=== PATIENT | male | born 1965 | race Two or more races ===

== ENCOUNTER → 2016-05-03 | Outpatient (CLI) | payer OTHER ==
[2015-07-13 18:41] VITALS: BP 139/87
[~2016-05-03] MED LIST: AMOX500C PO; ATOR10TA60 PO; CHOL10003 PO; DEXT10TA38 PO; DULO30CA2 PO; FENO134C PO; IBUP-1027 PO; LOSA25TA4 PO; OMEG500C PO; TAMS0.4C2 PO; TRAM50TA PO
--- NOTE | 2016-05-04 06:44 | PAIN ---
DATE OF SERVICE: 05/03/2016 INITIAL CONSULTATION FOR PAIN CLINIC CHIEF COMPLAINT: Low back pain and bilateral lower extremity pain, right greater than left. HISTORY OF PRESENT ILLNESS: This is a 50-year-old male who presents with a history of pain since 2012, gradually increasing, not a result of any specific injury or action that he is aware of, but has had significant pain across the low back, more on the right than the left, but present bilaterally for several years now. The patient reports it as constant, sharp, tingling with radiation to the lower extremities, mostly in the posterior gluteus, posterior thighs, also in the anterior thighs bilaterally, left groin, right groin, right medial lower leg, medial and anterior lower leg to the ankle on the right side. The patient reports it as aching and burning, worse with activity, sitting, changing positions. He must lie down about every 15-20 minutes if he is in a sitting position or standing to try and relieve the pain. The patient reports it slowly came down. He is having difficulty at work as he is having to change positions significantly throughout the day and has been off work now for about a month. The patient reports it awakens him from sleep at least 2-3 times at night and does affect his ability to walk significantly, but is not using any assistive devices to walk. The patient reports he has had physical therapy, which he felt was helpful, this was in 2015, also chiropractor treatment in 2015, which was helpful as well and pain management at an outside facility where he had an injection in his back. He is not certain exactly what it was, but did help temporarily in 10/2015. The patient did have an MRI scan of the lumbar spine showing a very mild bulging disk at several levels. No significant ridging, borderline canal narrowing at L5-S1 just over a centimeter with no significant stenosis or lateralizing disk protrusion seen. It does appear to be mild to moderate, neural foraminal narrowing seen at L5-S1. The patient reports his disability rating from 0-10, 10 being the worst, as a 7 with family and home responsibilities, social activities, sexual behavior and self-care, 9 with recreation, 8 with occupation and 2 with life support activities. The patient is taking tramadol, which he reports did help initially, but has not been helping much in the last few days. The patient reports no loss of motor function, but significant pain especially in the right leg with easy fatigability of the right leg as well. The patient reports the only thing that does give him relief is lying down, but it is still waking him from sleep several times at night. PAST MEDICAL HISTORY: Significant for hypertension, arthritis, current urinary tract infection, has been on antibiotics for 2 days. PAST SURGICAL HISTORY: No previous surgeries. ALLERGIES: No known drug allergies. CURRENT MEDICATIONS: Include amoxicillin, omega 3 fish oils, ibuprofen, atorvastatin, tamsulosin, Cymbalta, tramadol, vitamin D3, dextroamphetamine, fenofibrate and losartan. FAMILY HISTORY: Significant for cancer and heart disease. 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 REVIEW OF SYSTEMS: Positive for those items mentioned in the history of present illness. All systems reviewed and otherwise negative. It is complete, full and well documented on the patient's chart. PHYSICAL EXAMINATION: VITAL SIGNS: The patient's blood pressure is 139/52, pulse is 90, respirations 18, temperature 98.6 degrees Fahrenheit. Height is 5 feet 7 inches, weight is 256 pounds. GENERAL: The patient is awake, alert, oriented, appropriate, has a very pleasant demeanor. HEENT: Shows normocephalic, atraumatic. Extraocular movements are intact, symmetrical. Oral cavity, mucous membranes are moist and pink. Dentition is intact. NECK: Shows anterior throat supple without palpable lymphadenopathy noted. Swallow reflex is symmetrical. Neck shows full rotational motion of the cervical spine without difficulty or tenderness including extension and flexion, right and left lateral rotation greater than 45 degrees, closer to 90 degrees bilaterally. CHEST: Shows normal on inspection. Breath sounds are clear to auscultation bilaterally. HEART: Shows S1 and S2 clear. No murmurs are auscultated. ABDOMEN: Obese, but soft, nontender, nondistended. No palpable organomegaly is noted. No rebound or guarding demonstrated. BACK: Shows spine grossly in the midline. Normal-appearing cervical lordotic curvature, thoracic kyphotic curvature and lumbar lordotic curvature. No previous bruises, lesions, rashes or scars are noted. The patient's lumbar paraspinous musculature shows symmetrical on inspection, with palpation shows some moderate tenderness with palpation in the mid and low lumbar distribution, but diffusely in the paraspinous muscles without radiation, without atrophy or hypertrophy. No tenderness over the spinous processes themselves. No tenderness over the sacrum or sacroiliac regions with palpation. The patient has full rotational motion of the lumbar spine, both laterally greater than 10 degrees, right and left as well as extension greater than 10 degrees, forward flexion at 45 degrees without significant pain or difficulty, but only mild tenderness with left lateral rotation and right lateral rotation at 10 degrees. EXTREMITIES: The patient's lower extremities show deep tendon reflexes at 2+ in the patellar, 1+ tendo calcaneus tendons. Motor exam is strong with 5/5 dorsiflexion and extension as well as quadriceps and hamstring flexion and are symmetrical. Straight leg raise noted to be negative bilaterally for any radicular symptoms. Gaenslen's and Luiz's maneuvers are negative bilaterally as well. The patient's peripheral pulses at the posterior tibial and dorsalis pedis pulses are 1+. No peripheral edema is noted. No clubbing, no cyanosis. Lower extremities are warm and dry to touch, equal in color and appearance. The patient is able to stand, stand on his toes without significant difficulty or loss of balance, walks with a normal-appearing gait, not using any assistive devices such as canes or walkers to ambulate. IMPRESSION: 1. This is a 50-year-old male with approximate 3-year history of increasing low back pain, somewhat worse on the right than the left with some radiating pain into the right lower extremity greater than left lower extremity. 2. Hypertension. 3. Arthritis. 4. MRI scan of the lumbar spine as noted. PLAN: Options were discussed with the patient including conservative medical management, physical therapy continuation and interventional techniques. He would like to pursue interventional techniques. We discussed lumbar facet joint injections at the L4-L5 and L5-S1 levels bilaterally using description as well as anatomical models to describe the procedure. The patient does have a current UTI, however, and we will wait until he has had at least 7 days of antibiotics, have him return to the clinic and plan on bilateral L4-L5 and L5-S1 lumbar facet joint injections at that time. In the meantime, the patient will be given Medrol Dosepak with instructions and side effects to be aware of to see if this may help while he is awaiting his injections. POORNIMA BANDA MD DR: MARICARMEN/lexy JOB#: [id number] / [id number]
== END | disposition home or self-care (01) ==
LOC: PNCL 13:37
PROVIDERS: ATTEND Anesthesiology
DX: M54.5 Low back pain (principal); M79.605 Pain in left leg; M79.604 Pain in right leg
CPT/HCPCS: 99214

== ENCOUNTER → 2016-05-10 | Outpatient (CLI) | payer OTHER ==
[2015-07-13 18:41] VITALS: BP 139/87
[~2016-05-10] MED LIST changes: +BUPIVACAINE MPF 0.25% 10 ML VIAL. ONE; +IOHEXOL 180 MG/ML 10 ML VIAL. ONE; +methylPREDNISolone ACETATE 40 MG/ML VIAL. ONE; +methylPREDNISolone ACETATE 80 MG/ML VIAL. ONE
--- NOTE | 2016-05-10 10:52 | PAIN ---
DATE OF SERVICE: 05/10/2016 DIAGNOSES: Lumbar spondylosis with low back pain and lumbar degenerative disk disease. HISTORY OF PRESENT ILLNESS: The patient is a 50-year-old male who returns for followup, last seen 2 days ago. The patient was on antibiotics on the tapering edge of these, has finished his antibiotics now for urinary tract infection. He remains afebrile with temperature 98.1 degrees today, he is still with significant pain in the low back; however, we talked about performing bilateral facet joint injections in the low lumbar distribution now for him and he returns today to proceed with facet joint injections. The patient reports still significant pain in the low back with rotation, bending, flexing, extension as well as standing and sitting, changing positions and also significant pain with lying down, still disturbing his sleep. The patient reports no new motor or sensory deficits, no new bowel or bladder incontinence or other complaints. PHYSICAL EXAMINATION: VITAL SIGNS: Today, the patient's blood pressure is 129/70, pulse 77, respirations 18, temperature 98.1 degrees Fahrenheit. Height is 5 feet 7 inches, weighs 255 pounds. GENERAL: The patient is awake, alert, oriented, appropriate, very pleasant demeanor. HEENT: Shows normocephalic, atraumatic. Extraocular movements are intact, symmetrical. Oral cavity, mucous membranes are moist and pink. Dentition is intact. NECK: Shows anterior throat supple without palpable lymphadenopathy noted. Swallow reflex is symmetrical. CHEST: Shows normal on inspection. Breath sounds are clear to auscultation bilaterally. HEART: Shows S1 and S2 clear. ABDOMEN: Soft, nontender, nondistended. BACK: Shows spine grossly midline. Lumbar paraspinous musculature shows again some moderate tenderness with palpation in the low and mid lumbar distribution, but only diffusely with some tenderness with extension, but not with forward flexion. EXTREMITIES: Lower extremities show deep tendon reflexes 2+ in the patellar and 1+ tendo calcaneus tendons are equal. Motor exam is strong with 5/5 dorsiflexion, extension, quadriceps and hamstring flexion and symmetrical. Options were discussed with the patient. We will proceed with bilateral L4-L5 and L5-S1 facet joint injections with fluoroscopic guidance. Risks were again discussed including, but not limited to bleeding, infection, possibility of epidural hematoma, subsequent neurologic compromise, dural punctures, headaches, spinal cord and/or nerve damage, side effects of steroid medication and poor results regarding pain control. The patient understands and wishes to proceed. The patient will return to clinic in approximately 2 weeks for followup, was counseled on return appointment, activity level, and side effects to be aware of. DIAGNOSIS: Lumbar spondylosis with low back pain and lumbar degenerative disk disease. PROCEDURES: Bilateral L4-L5 and L5-S1 facet joint injections with C-arm fluoroscopic guidance under sterile prep and drape using local anesthesia. Medication injected is a total of 120 mg Depo-Medrol plus total of 0.25% bupivacaine, 4 mL and a total of 2 mL of Isovue contrast. CONDITION AT DISCHARGE: Stable. The patient tolerated procedure well, had no complications. POORNIMA BANDA MD DR: MARICARMEN/lexy JOB#: [id number] / [id number]
== END | disposition home or self-care (01) ==
LOC: PNCL 08:59
PROVIDERS: ATTEND Anesthesiology
DX: M51.36 Other intervertebral disc degeneration, lumbar region (principal); M47.816 Spondylosis without myelopathy or radiculopathy, lumbar region
CPT/HCPCS: 64493; 64494; J1030; J1040; J3490

== ENCOUNTER → 2016-05-24 | Outpatient (CLI) | payer OTHER ==
[2015-07-13 18:41] VITALS: BP 139/87
--- NOTE | 2016-05-25 06:00 | PAIN ---
DATE OF SERVICE: 05/24/2016 PROGRESS NOTE FOR PAIN CLINIC DIAGNOSES: 1. Lumbar spondylosis with low back pain and lumbar degenerative disk disease. 2. Myofascial pain. HISTORY OF PRESENT ILLNESS: The patient is a 50-year-old male who returns for followup status post bilateral facet joint injections at the L4-L5 and L5-S1 levels. The patient reports he did very well with this, but is still having some pain, now more in the mid upper back, reports that he has had a previous herniated disk in this region by history only, does not have any recent imaging to support this, but has had significant pain in this region, mostly when standing from a sitting position bilaterally in the mid upper back, also some pain in the low back and the left hip, but much improved after the last injections. The patient reports it is worse standing from a sitting position across the mid back, more on the right than the left, at this time, in the mid upper back. The patient reports after he is sitting at work for several hours, he stands and the pain is excruciating again in the mid upper back, more on the right than the left, is a burning, stabbing, constant aching pain in these regions, again more on the right than the left. The patient reports otherwise doing well. No new motor or sensory deficits, no new bowel or bladder incontinence or other complaints. PHYSICAL EXAMINATION: VITAL SIGNS: Today, the patient's blood pressure is 128/81, pulse 67, respirations are 18, temperature is 97.5 degrees Fahrenheit, height is 5 feet 7 inches, weight is 249 pounds. GENERAL: The patient is awake, alert, oriented, appropriate, has a very pleasant demeanor. HEENT: Shows normocephalic, atraumatic. Extraocular muscles are intact and symmetrical. Oral cavity shows mucous membranes moist and pink. Dentition is intact. NECK: Shows anterior throat supple without palpable lymphadenopathy noted. Swallow reflex is symmetrical. CHEST: Shows normal on inspection. Breath sounds are clear to auscultation bilaterally. HEART: Shows S1 and S2 clear. ABDOMEN: Soft, nontender, nondistended. No palpable organomegaly is noted. No rebound or guarding demonstrated. BACK: Shows spine grossly in the midline, normal appearing thoracic kyphosis and lumbar lordotic curvature. There is significant tenderness on palpation in the thoracic paraspinous musculature, is very firm, rope-like musculature noted bilaterally, worse on the right than the left, but more tender into the lateral aspect of the right paraspinous musculature as well in the low thoracic distribution, more than the left, but very tight, very firm with rope-like musculature bilaterally, very tender with palpation without significant radiation. Low back shows some only very mild tenderness with palpation. It shows good rotation of the lumbar spine, both laterally as well as extension and flexion without significant pain reported on exam today, especially with extension, which was painful on previous exam. Forward flexion was performed fully at 45 degrees without difficulty as well. LOWER EXTREMITIES: Show deep tendon reflexes at 2+ in the patellar, 1+ tendo-calcaneus tendons, are equal. Motor exam is strong with 5/5 dorsiflexion, extension, quadriceps and hamstring flexion and symmetrical. PLAN: Options were discussed with the patient and we will proceed with an MRI scan of the thoracic spine as he has a history of herniated disk there with increased thoracic radicular qualities on the right side, also significant myofascial pain. We will proceed with trigger point injections today. We discussed this. Risks were then discussed with the patient including, but not limited to bleeding, infection, possibility of intravascular injection and sequelae, pneumothorax, spread of local anesthetic, numbness, side effects of steroid medication and poor results regarding pain control. The patient understands and wishes to proceed. The patient will return to clinic after the MRI scan of the thoracic spine is completed and we will review that once it is available. DIAGNOSIS: Myofascial pain, thoracic paraspinous musculature. PROCEDURE: Trigger point injections, bilateral thoracic paraspinous musculature using a sterile prep and drape under local anesthesia. MEDICATIONS INJECTED: A total of 7 mL of 0.25% bupivacaine and 40 mg Depo-Medrol total after negative aspiration at each level. CONDITION AT DISCHARGE: Stable. The patient tolerated the procedure well, had no complications. POORNIMA BANDA MD DR: MARICARMEN/lexy JOB#: [id number] / [id number]
== END | disposition home or self-care (01) ==
LOC: PNCL 08:32
PROVIDERS: ATTEND Anesthesiology
DX: M79.1 Myalgia (principal); M51.36 Other intervertebral disc degeneration, lumbar region; M47.9 Spondylosis, unspecified
CPT/HCPCS: 20553; J1030; J3490; J1040

== ENCOUNTER → 2016-05-30 | Outpatient (CLI) | payer OTHER ==
[2015-07-13 18:41] VITALS: BP 139/87
[~2016-05-30] MED LIST changes: -BUPIVACAINE MPF 0.25% 10 ML VIAL. ONE; +CONTRAST GIVEN MC PRN; -IOHEXOL 180 MG/ML 10 ML VIAL. ONE; +IOHEXOL 300 MG/ML 75 ML VIAL IV ONE; -methylPREDNISolone ACETATE 40 MG/ML VIAL. ONE; -methylPREDNISolone ACETATE 80 MG/ML VIAL. ONE
[2016-05-30 19:50] LABS: BASO # 0.1 x10^3/uL (0.0-0.2); BASO % 1 % (0-3); EOS % 1 % (0-3); HEMOGLOBIN 14.4 g/dL (13.0-17.5); LYMPH # 3.1 x10^3/uL (1.0-4.8); LYMPH % 40 % (24-48); MEAN CORPUSCULAR HEMOGLOBIN 31 pg (25-35); MEAN CORPUSCULAR HGB CONC 34 g/dL (31-37); MEAN CORPUSCULAR VOLUME 91 fL (79-100); MONO % 9 % (0-9); NEUT % 51 % (31-73); PLATELET COUNT 221 x10^3/uL (140-400); RED BLOOD COUNT 4.72 x10^6/uL (4.30-5.70); RED CELL DISTRIBUTION WIDTH 14.5 % (11.5-14.5); WHITE BLOOD COUNT 7.9 x10^3/uL (4.0-11.0)
[2016-05-30 19:51] LABS: BILIRUBIN,URINE NEGATIVE (NEG); GLUCOSE,URINE NEGATIVE (NEG); NITRITE,URINE NEGATIVE (NEG); PROTEIN,URINE NEGATIVE (NEG-TRACE); UROBILINOGEN,URINE 0.2 mg/dL (0.2 mg/dL)
[2016-05-30 19:55] LABS: BACTERIA,URINE 0 /HPF (0-FEW); RBC,URINE 0 /HPF (0-2); SQUAMOUS EPITHELIAL CELL,UR OCC /LPF; WBC,URINE 0 /HPF (0-4)
[2016-05-30 20:02] LABS: CREATININE 1.2 mg/dL (0.7-1.3); GFR 64.1; POTASSIUM 3.9 mmol/L (3.5-5.1)
[2016-05-30 20:08] LABS: ALBUMIN 4.1 g/dL (3.4-5.0); ALBUMIN/GLOBULIN RATIO 1.2 (1.0-1.7); TOTAL BILIRUBIN 0.7 mg/dL (0.2-1.0); TOTAL PROTEIN 7.6 g/dL (6.4-8.2)
--- NOTE | 2016-05-30 20:48 | RAD ---
PROCEDURE Abdomen CT with intravenous contrast. HISTORY Right upper quadrant pain. TECHNIQUE Computed tomographic images of the abdomen were obtained following the administration of 75 cc Omnipaque 300 intravenous contrast. One or more of the following individualized dose reduction techniques were utilized for this examination: 1. Automated exposure control; 2. Adjustment of the mA and/or kV according to patient size; 3. Use of iterative reconstruction technique. COMPARISON None. FINDINGS Evaluation of the lower thorax demonstrates posterior dependent atelectasis. There is lingular scarring. The heart is normal in size. There is hepatic steatosis. No focal hepatic lesion is seen. There is cholelithiasis. The pancreas, spleen, adrenal glands and kidneys are unremarkable. There is a punctate density within the right kidney which is likely due to early excretion of contrast rather than a nonobstructing stone. There is no abnormally thickened or dilated loop of bowel. There is no pathologically enlarged lymph node. There are degenerative changes throughout the spine. No suspicious osseous lesion is seen. There are few endplate Schmorl's nodes. IMPRESSION 1. Hepatic steatosis. 2. Cholelithiasis. Electronically signed by: Nini Heard (May 30, 2016 20:46:52)
== END | disposition home or self-care (01) ==
LOC: LAB 19:15
PROVIDERS: ATTEND Specialist
DX: K80.20 Calculus of gallbladder without cholecystitis without obstruction (principal); K76.0 Fatty (change of) liver, not elsewhere classified
CPT/HCPCS: 36415; 74160; 80053; 81001; 82150; 83690; 85027; Q9967

== ENCOUNTER → 2016-06-01 | Outpatient (CLI) | payer OTHER ==
[2015-07-13 18:41] VITALS: BP 139/87
[~2016-06-01] MED LIST changes: -CONTRAST GIVEN MC PRN; -IOHEXOL 300 MG/ML 75 ML VIAL IV ONE
--- NOTE | 2016-06-01 10:18 | [facility] ---
PROCEDURE MRI thoracic spine without contrast. HISTORY Radiculopathy. Chronic back pain. Symptoms for over 2 years. TECHNIQUE Sagittal T1, sagittal T2, sagittal STIR, axial T1, and axial T2 sequences are provided. COMPARISON None. FINDINGS There is no malalignment. There is no marrow edema. There is no worrisome marrow lesion. There is no cord signal abnormality. Mild disc bulge is noted at T7-T8 and T8-T9. There is also facet hypertrophy at these levels. There is minimal foraminal narrowing at T8-T9. Minimal disc bulge and facet hypertrophy are noted at T9-T10 and T10-T11 without canal or foraminal compromise. At T11-T12 there is a diffuse disc bulge but no canal or foraminal compromise. IMPRESSION - No evidence of compression fracture. - Mild degenerative disc disease and facet hypertrophy without any high-grade canal stenosis. Electronically signed by: Pako Madrigal MD (Jun 01, 2016 10:17:11)
== END | disposition home or self-care (01) ==
LOC: KCIC MRI 08:27
PROVIDERS: ATTEND Anesthesiology
DX: M51.14 Intervertebral disc disorders with radiculopathy, thoracic region (principal)
CPT/HCPCS: 72146

== ENCOUNTER → 2016-06-05 | Outpatient (CLI) | payer OTHER ==
[2015-07-13 18:41] VITALS: BP 139/87
[~2016-06-05] MED LIST changes: +BUPIVACAINE MPF 0.25% 10 ML VIAL. ONE; +methylPREDNISolone ACETATE 40 MG/ML VIAL. ONE
--- NOTE | 2016-06-06 02:05 | PAIN ---
DATE OF SERVICE: 06/05/2016 PROGRESS NOTE FOR PAIN CLINIC DIAGNOSES: 1. Lumbar spondylosis with low back pain and lumbar degenerative disk disease. 2. Myofascial pain. HISTORY OF PRESENT ILLNESS: The patient is a 50-year-old male who returns for followup status post trigger point injection as well as bilateral facet joint injections at L4-L5 and L5-S1 only with about 30% improvement with each of these. The patient reports the pain has returned after about a week in the area where the trigger points were last time, in the mid and right side of the thorax. The patient reports it is constant, stabbing and sharp, now mostly on the right side radiating to the right ribcage about the mid axillary line anywhere from a 6-8 on a scale of 10, worse with sitting in his desk for a prolonged period, worse with changing positions from standing to sitting, especially with prolonged sitting to standing. The patient reports no new motor or sensory deficits or other complaints, somewhat frustrated with his pain level at this time and is causing some clinical depression as well. PHYSICAL EXAMINATION: VITAL SIGNS: Today, blood pressure is 130/80, pulse 77, respirations are 20, temperature is 98.7 degrees Fahrenheit. Height is 5 feet 7 inches, weighs 251 pounds. GENERAL: The patient is awake, alert, oriented, appropriate, very pleasant demeanor. HEENT: Head shows normocephalic, atraumatic. Extraocular movements are intact and symmetrical. Oral cavity, mucous membranes are moist and pink. Dentition is intact. NECK: Shows anterior throat supple without palpable lymphadenopathy noted. Swallow reflex is symmetrical. CHEST: Shows normal on inspection. Breath sounds clear to auscultation bilaterally. HEART: Shows S1 and S2 clear. ABDOMEN: Soft, nontender, nondistended. No palpable organomegaly. BACK: Shows spine grossly midline. With palpation shows significant tenderness and hypertrophy at the right-sided mid and upper thoracic distribution of paraspinous musculature as well as the rhomboid muscle on the right side only. Left side is supple with some mild tenderness, but only very mild with very deep palpation on the left side. His right side is very firm, very tender without specific radiation, but very firm musculature, very tender ____ trigger point areas musculature. Low back shows some very mild tenderness with palpation in the lumbar paraspinous musculature. There are no tenderness over the sacroiliac regions or sacrum with palpation. Options were discussed with the patient. At this time, the patient's old chart was reviewed as his current medication regimen updated. Current review of systems updated today as well and we will proceed with trigger point injections to the right-sided thoracic paraspinous and rhomboid musculature. Risks were again discussed including, but not limited to bleeding, infection, possibility of epidural hematoma and subsequent neurologic compromise, dural puncture, headaches, spinal cord and/or nerve damage, side effects of steroid medication and poor results regarding pain control. The patient understands and wishes to proceed. The patient will return to clinic in approximately 2 weeks for followup. We did review his MRI scan of his thoracic spine as well showing only some very mild degenerative disk disease without any high grade canal stenosis at T11-T12, but diffuse disk bulge, but no foraminal compromise at T8-T9, minimal disk bulge T9-T10 as well without any significant stenosis. The patient also reports some significant depression. He has been talking to his primary care physician about this and encouraged him to discuss this more and even suggested potential psychiatry intervention if necessary. The patient will consider this as well. The patient will follow up in approximately 2 weeks. 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 POORNIMA BANDA MD DR: MARICARMEN/lexy JOB#: [id number] / [id number]
== END | disposition home or self-care (01) ==
LOC: PNCL 08:52
PROVIDERS: ATTEND Anesthesiology
DX: M79.1 Myalgia (principal); M51.36 Other intervertebral disc degeneration, lumbar region; M47.896 Other spondylosis, lumbar region
CPT/HCPCS: 20552; J1030; J3490

== ENCOUNTER 2016-06-26 09:21 | Observation (INO) | payer OTHER ==
[~2016-06-26] VITALS: Ht 175.3 cm; Wt 110.7 kg
[2016-06-26] VITALS (10 sets, daily range): BP systolic 103–129; BP diastolic 51–73
[~2016-06-26 09:21] MED LIST changes: -BUPIVACAINE MPF 0.25% 10 ML VIAL. ONE; +DEXAMETHASONE SOD PHOS 20 MG/5 ML VIAL. ONE; +HYDROmorphone 2 MG/ML VIAL IV PRN; +IV RINGERS,LACTATED 1000ML 1,000 ML IV SCH; +LIDOCAINE 1% 1 ML SYRINGE. ID PRN; +LIDOCAINE 2% PF Vial for OR 5 ML VIAL. ONE; +MORPHINE SULFATE 2 MG/ML DISP.SYRIN. IV PRN; +ONDANSETRON PF 4 MG/2 ML VIAL. IV PRN; +ONDANSETRON PF 4 MG/2 ML VIAL. ONE; +PROCHLORPERAZINE 10 MG/2 ML VIAL. IV PRN; +PROPOFOL 20 ML IV ONE; +ROCURONIUM 50 MG/5 ML VIAL. ONE; +SUCCINYLCHOLINE 200 MG/10 ML VIAL. ONE; +fentaNYL PF VIAL 100 MCG/2 ML VIAL IV PRN; +fentaNYL PF VIAL 250 MCG/5 ML VIAL ONE; -methylPREDNISolone ACETATE 40 MG/ML VIAL. ONE
[2016-06-26] MEDS ORDERED: DESFLURANE > 120 MINUTES IH ONE (09:22)
[2016-06-26 10:00] LABS: BASO % 1 % (0-3); EOS % 1 % (0-3); HEMATOCRIT 40.9 % (39.0-53.0); HEMOGLOBIN 14.4 g/dL (13.0-17.5); LYMPH # 1.9 x10^3/uL (1.0-4.8); LYMPH % 35 % (24-48); MEAN CORPUSCULAR HEMOGLOBIN 31 pg (25-35); MEAN CORPUSCULAR HGB CONC 35 g/dL (31-37); MEAN CORPUSCULAR VOLUME 89 fL (79-100); MONO % 10 % (0-9); NEUT % 54 % (31-73); PLATELET COUNT 235 x10^3/uL (140-400); RED BLOOD COUNT 4.58 x10^6/uL (4.30-5.70); RED CELL DISTRIBUTION WIDTH 14.9 % (11.5-14.5); WHITE BLOOD COUNT 5.5 x10^3/uL (4.0-11.0)
[2016-06-26] MEDS ORDERED: GLYCOPYRROLATE 1 MG/5 ML VIAL. ONE (10:46)
[2016-06-26] MEDS ORDERED: NEOSTIGMINE METHYLSULFATE 5 MG/5 ML SYRINGE. ONE (10:46)
[2016-06-26] MEDS ORDERED: PHENYLEPHRINE in 0.9% NACL PF 1 MG/10 ML DISP.SYRIN. IV ONE (10:50)
[2016-06-26] MEDS ORDERED: IOHEXOL 300 MG/ML 50 ML VIAL. IJ ONE (10:59)
[2016-06-26] MEDS ORDERED: BUPIVAC MPF-EPI 0.5%-1:200000 30 ML VIAL. INJ ONE (10:59)
[2016-06-26] MEDS ORDERED: ePHEDrine PF IN SALINE 50 MG/5 ML DISP.SYRIN IV ONE (11:09)
[2016-06-26] MEDS ORDERED: PROPOFOL 20 ML IV ONE (11:27)
[2016-06-26] MEDS ORDERED: KETOROLAC 30 MG/ML INJ FOR OR. INJ ONE (11:28)
[2016-06-26] MEDS ORDERED: DESFLURANE 61 TO 120 MINUTES IH ONE (11:33)
--- NOTE | 2016-06-26 11:34 | RAD ---
Operative cholangiogram History: Intraoperative cholangiogram. Procedure: Fluoroscopic images were provided during the procedure. The cystic duct has been catheterized and contrast has been injected. Findings: The common hepatic bile duct and common bile duct are patent without evidence of intraluminal filling defect or obstruction. Contrast empties normally into the duodenum. Total fluoroscopy time 19 seconds Impression: Normal operative cholangiogram.
[2016-06-26] MEDS: IV DEXTROSE 5 %-0.45 % NACL 1,000 ML IV SCH ×2 (12:14→22:14)
--- NOTE | 2016-06-26 12:14 | PDOC4 ---
Operative Note Operative Note Operative Note: Preoperative Diagnosis: Symptomatic cholelithiasis Postoperative Diagnosis: Same Procedure: Laparoscopic cholecystectomy with intraoperative cholangiogram Surgeons: Mp Anesthesia: GenBucky Estimated Blood Loss: 10 mL Specimen: Gallbladder to pathology Drains: None Complications: None Indications: The patient is a 50-year-old male who has been experiencing recurrent upper abdominal pain with radiation to the back. His evaluation included a CT scan which showed gallstones. Surgical treatment was offered by means of a laparoscopic cholecystectomy. The risks of surgery were discussed which include bleeding, infection, bile duct injury, bile leak, pain, the potential for additional surgeries or procedures. The patient understands and would like to proceed. Description: The patient was taken to the operating room and laid supine on the operating table. General anesthesia was performed. The abdomen was prepped with ChloraPrep and draped in a standard surgical fashion. A small supraumbilical incision was made with a scalpel. The Veress needle was then inserted and a pneumoperitoneum was then created. A 5 mm trocar was then inserted and the laparoscope was introduced. In the upper midabdomen a 5 mm trocar was inserted and in the right upper quadrant two 2.3 mm mini lap graspers were inserted. The gallbladder was retracted cephalad. An additional 2.3 mm mini lap grasper was inserted in the right lower abdomen to assist with downward retraction on the omentum providing better exposure. The cystic duct was dissected free from surrounding tissues. One clip was placed on the duct near the gallbladder junction. An opening was made in the duct and a cholangiocatheter placed within and secured with a clip. Using contrast dye and fluoroscopy an intraoperative cholangiogram was performed that appeared unremarkable. The clip and catheter were then withdrawn. Three clips were placed on the cystic duct and it was divided. The cystic artery was then identified, dissected free, doubly clipped and divided as well. The gallbladder was then mobilized away from the liver with cautery. The umbilical 5 millimeter trocar was exchanged for an 11 millimeter trocar. The gallbladder was then placed in an endoscopic bag and extracted at the umbilical trocar site. The fascia there was closed with an 0 Vicryl suture. All blood and irrigation fluid was suctioned and hemostasis was good. The remaining ports were removed and the pneumoperitoneum was relieved. The skin incisions were injected with half percent Marcaine with epinephrine, and all were closed using 4-0 Monocryl suture. Steri-Strips and dressings were then applied. The patient tolerated the procedure well and was sent to the recovery room in stable condition. At the end of the case all counts were correct. ARTIE CANDELARIA MD June 26, 2016 12:14
[2016-06-26] MEDS ORDERED: 0.9 % SODIUM CHLORIDE 10 ML DISP.SYRIN. IV PRN (12:15)
[2016-06-26] MEDS ORDERED: PROCHLORPERAZINE 10 MG/2 ML VIAL. IV PRN (12:15)
[2016-06-26] MEDS ORDERED: KETOROLAC TROMETHAMINE 30 MG/ML INJ. IV PRN (12:15)
[2016-06-26] MEDS: fentaNYL PF VIAL 100 MCG/2 ML VIAL IV PRN ×2 (12:15→13:02)
[2016-06-26] MEDS ORDERED: HYDROmorphone 2 MG/ML VIAL IV PRN (12:15)
[2016-06-26] MEDS ORDERED: oxyCODONE/APAP 5/325 1 TAB TABLET PO PRN (12:15)
[2016-06-26] MEDS ORDERED: ONDANSETRON PF 4 MG/2 ML VIAL. IV PRN (12:15)
[2016-06-26] MEDS ORDERED: DEXTROSE 50% 25 GM / 50ML DISP.SYRIN. IV PRN (12:15)
[2016-06-26] MEDS: oxyCODONE/APAP 5/325 1 TAB TABLET PO PRN (19:41)
[2016-06-26] MEDS ORDERED: ATORVASTATIN CALCIUM 10 MG TABLET. PO SCH (21:00)
[2016-06-27 03:01] VITALS: BP 120/73
[2016-06-27 07:00] VITALS: BP 118/69
[2016-06-27] MEDS: IV DEXTROSE 5 %-0.45 % NACL 1,000 ML IV SCH (08:14)
[2016-06-27] MEDS ORDERED: TAMSULOSIN 0.4 MG CAP.ER.24H. PO SCH (09:00)
[2016-06-27] MEDS ORDERED: FENOFIBRATE,MICRONIZED 134 MG CAPSULE PO SCH (09:00)
[2016-06-27] MEDS ORDERED: LOSARTAN POTASSIUM 25 MG TABLET. PO SCH (09:00)
[2016-06-27] MEDS ORDERED: DULoxetine HCL 30 MG CAPSULE.DR PO SCH (09:00)
--- NOTE | 2016-06-27 09:11 | PDOC ---
SURGICAL PROGRESS NOTE Subjective tolerating diet, bloated after breakfast though no emesis pain with moving ambulating Vital Signs Vital Signs Date Time Temp Pulse Resp B/P (MAP) Pulse Ox O2 Delivery O2 Flow Rate FiO2 06/27/16 08:53 Room Air 06/27/16 08:45 83 118/69 06/27/16 07:00 98.1 20 95 98.1 06/26/16 12:57 2 I&O Intake and Output 06/27/16 07:00 Intake Total 495 ml Balance 495 ml Intake Oral 495 ml # Voids 5 General: Alert, Oriented X3, Cooperative, No acute distress Abdomen: Soft, Other (lap sites c/d/i) Labs Laboratory Tests Test 06/26/16 09:50 White Blood Count 5.5 x10^3/uL (4.0-11.0) Red Blood Count 4.58 x10^6/uL (4.30-5.70) Hemoglobin 14.4 g/dL (13.0-17.5) Hematocrit 40.9 % (39.0-53.0) Mean Corpuscular Volume 89 fL (79-100) Mean Corpuscular Hemoglobin 31 pg (25-35) Mean Corpuscular Hemoglobin Concent 35 g/dL (31-37) Red Cell Distribution Width 14.9 % (11.5-14.5) Platelet Count 235 x10^3/uL (140-400) Neutrophils (%) (Auto) 54 % (31-73) Lymphocytes (%) (Auto) 35 % (24-48) Monocytes (%) (Auto) 10 % (0-9) Eosinophils (%) (Auto) 1 % (0-3) Basophils (%) (Auto) 1 % (0-3) Neutrophils # (Auto) 3.0 x10^3uL (1.8-7.7) Lymphocytes # (Auto) 1.9 x10^3/uL (1.0-4.8) Monocytes # (Auto) 0.5 x10^3/uL (0.0-1.1) Eosinophils # (Auto) 0.0 x10^3/uL (0.0-0.7) Basophils # (Auto) 0.0 x10^3/uL (0.0-0.2) Laboratory Tests Test 06/26/16 09:50 White Blood Count 5.5 x10^3/uL (4.0-11.0) Red Blood Count 4.58 x10^6/uL (4.30-5.70) Hemoglobin 14.4 g/dL (13.0-17.5) Hematocrit 40.9 % (39.0-53.0) Mean Corpuscular Volume 89 fL (79-100) Mean Corpuscular Hemoglobin 31 pg (25-35) Mean Corpuscular Hemoglobin Concent 35 g/dL (31-37) Red Cell Distribution Width 14.9 % (11.5-14.5) Platelet Count 235 x10^3/uL (140-400) Neutrophils (%) (Auto) 54 % (31-73) Lymphocytes (%) (Auto) 35 % (24-48) Monocytes (%) (Auto) 10 % (0-9) Eosinophils (%) (Auto) 1 % (0-3) Basophils (%) (Auto) 1 % (0-3) Neutrophils # (Auto) 3.0 x10^3uL (1.8-7.7) Lymphocytes # (Auto) 1.9 x10^3/uL (1.0-4.8) Monocytes # (Auto) 0.5 x10^3/uL (0.0-1.1) Eosinophils # (Auto) 0.0 x10^3/uL (0.0-0.7) Basophils # (Auto) 0.0 x10^3/uL (0.0-0.2) Problem List s/p lap viviana nv home today FU 2 weeks Problems: WINNIE NGUYỄN APRN June 27, 2016 09:11
[2016-06-27 11:00] VITALS: BP 123/71
[2016-06-27] MEDS: oxyCODONE/APAP 5/325 1 TAB TABLET PO PRN (13:47)
--- NOTE | 2016-06-28 11:02 | PDOC3 ---
Discharge Summary* Date of Admission: June 26, 2016 Date of Discharge: June 27, 2016 Admitting Diagnosis symptomatic cholelithiasis Final Diagnosis symptomatic cholelithiasis CONSULTS none Procedures Laparoscopic cholecystectomy with intraoperative cholangiogram Brief Hospital Course Mr. Barnes is a 50 old male who presented with cholelithiasis. Underwent above procedure, postoperatively tolerating diet, ambulating, and pain controlled. Ready to discharge home Disposition/Orders: D/C to Home CONDITION AT DISCHARGE: Stable Diet: Regular Scheduled Atorvastatin Calcium (Atorvastatin Calcium), 1 TAB PO DAILY, (Reported) Cholecalciferol (Vitamin D3) (Vitamin D3), 1 TAB PO DAILY, (Reported) Duloxetine Hcl (Cymbalta), 30 MG PO DAILY, (Reported) Fenofibrate,Micronized (Fenofibrate), 1 CAP PO DAILY, (Reported) Losartan Potassium (Losartan Potassium), 25 MG PO DAILY, (Reported) Peabody-3 Fatty Acids (Fish Oil), 500 MG PO BID, (Reported) Tamsulosin Hcl (Tamsulosin Hcl), 1 CAP PO DAILY, (Reported) Discontinued Medications Amoxicillin (Amoxicillin), 500 MG PO TID, (Reported) Dextroamphetamine/Amphetamine (Amphetamine Salts 10 Mg Tab), 1 TAB PO DAILY, ( Reported) Ibuprofen (Ibuprofen), 400 MG PO PRN Q6HRS PRN for INFLAMMATION, (Reported) Tramadol Hcl (Tramadol Hcl), 50 MG PO Q6H PRN for PAIN, (Reported) FOLLOW UP APPOINTMENT: 2 weeks Time Spent Total time spent with patient [] minutes for coordination of care, counseling, and education. WINNIE NGUYỄN APRN June 28, 2016 11:02
--- NOTE | 2016-06-28 15:04 | PATHOLOGY ---
PATHOLOGY REPORT * * * * * * * * FINAL DIAGNOSIS: Gallbladder, laparoscopic cholecystectomy: - Cholelithiasis. - Chronic cholecystitis. COMMENT: There is no evidence of malignancy. (MARIAM:; d/t: 06/28/16) REPORT ELECTRONICALLY SIGNED BY: Matthias Reid M.D. DATE/TIME: 06/28/2016 15:04 * * * * * * * * GROSS PATHOLOGY: Received in formalin labeled "Ashlee Barnes, gallbladder sac with contents," is an 8.5 x 4.0 x 2.8 cm, intact gallbladder with green curran and moderately adipose covered serosal surfaces. Opening the gallbladder reveals velvety and bile-stained mucosa and an average wall thickness of 0.1 cm. Multiple dark green, nodular calculi are present and no masses are noted grossly. Environmental Director sections from the body and fundus are submitted along with the proximal margin in cassette A1. (KAH; 06/27/2016) INITIAL CPT CODE(S): A; 62104 Professional services performed by [facility] [place] [address] Technical services performed by [facility] at [address] [place] [address] [address], [place] [address]. SPECIMEN(S) RECEIVED: A.Gallbladder sac with content CLINICAL HISTORY: Symptomatic cholelithiasis PATIENT: ASHLEE BARNES /AGE: 1011/27/1965 (Age: 50) PATIENT #: [id number] ALT CASE #: SPECIMEN COLLECTION DATE: 06/26/2016 SPECIMEN RECEIVED DATE: 06/26/2016 [facility] - [address] [place] [address] - PHONE: [phone] * * * END OF REPORT * * *
== END 2016-06-27 13:56 ==
LOC: SURG 09:21 → 4 NORTH 13:01
PROVIDERS: ADMIT Surgery; ATTEND Surgery
DX: K80.20 Calculus of gallbladder without cholecystitis without obstruction (principal)
CPT/HCPCS: 36415; 47563; 74300; 85027; C1769; C1782; G0378; G0379; J0330; J1100; J1885; J2370; J2405; J2704; J2710; J3010; J3490; J7030; J7120; Q9967; 88304